=== PATIENT | female | born 1950 ===

== ENCOUNTER 2024-06-02 05:14 | Day surgery (SDC) | payer OTHER ==
[~2024-06-02 05:14] MED LIST: ALEGRA; AMARYL; ATACAND16 MG PO; GLUCOPHAGE XR500 MG PO; GLUMETZA1000 MG PO; JANUMET XR 1001 EACH; KETO10TA2 PO; LIPITOR20 MG; ORPH100T PO; PEPCID AC20 MG; PROTONIX40 MG PO; SINGULAIR10 MG PO
[2024-06-02] MEDS ORDERED: DIBUCAINE 30 GM TUBE ONE (07:12)
[2024-06-02] MEDS ORDERED: CEFTRIAXONE SODIUM 2,000 MG VIAL ONE (07:12)
[2024-06-02] MEDS ORDERED: HEMOSTATIC MATRIX 1 KIT KIT TOP ONE (07:12)
[2024-06-02] MEDS ORDERED: BUPIVACAINE HCL/MPF 0.5% 30ML VIAL ONE (07:12)
[2024-06-02] MEDS ORDERED: LIDOCAINE HCL 1%/EPINEPHRINE 20ML VIAL IJ ONE (07:12)
[2024-06-02] MEDS ORDERED: POVIDONE-IODINE 118 ML BOTT TOP ONE (07:12)
[2024-06-02] MEDS ORDERED: METRONIDAZOLE/SODIUM CHLORIDE 500 MG/100 ML PIGGYBACK IV ONE (07:13)
[2024-06-02] MEDS ORDERED: TRAM1TAB98 PO (10:05)
== END 2024-06-02 12:10 | disposition home or self-care (01) ==
LOC: CIR.AMB 05:14
PROVIDERS: ATTEND Surgery
DX: K62.3 Rectal prolapse (principal); K64.4 Residual hemorrhoidal skin tags; K62.5 Hemorrhage of anus and rectum; R15.9 Full incontinence of feces; Z88.1 Allergy status to other antibiotic agents; Z91.013 Allergy to seafood; I10 Essential (primary) hypertension; J45.909 Unspecified asthma, uncomplicated; H52.209 Unspecified astigmatism, unspecified eye; H52.10 Myopia, unspecified eye; H26.9 Unspecified cataract